=== PATIENT | female | born 1965 | race Caucasian/White ===

== ENCOUNTER 2019-01-06 12:55 | Emergency (ER) | payer OTHER ==
[~2019-01-06] VITALS: Ht 162.6 cm; Wt 90.7 kg
[2019-01-06 13:06] VITALS: Ht 162.6 cm; Wt 90.7 kg
[2019-01-06 13:50] LABS: BASOPHIL % 0.3 % (0-2); PLATELET COUNT 315 x10^3mcL (130-400)
[2019-01-06 13:54] LABS: RED CELL DISTRIBUTION WIDTH 14.6 % (11.5-14.5)
[2019-01-06 14:51] LABS: CARBON DIOXIDE 31.6 mmol/L (21-32); CHLORIDE SERUM 101 mmol/L (98-107); CREATININE SERUM 0.6 mg/dL (0.6-1.0); GFR1 > 60 mL/min; GLUCOSE SERUM 94 mg/dL (74-106); POTASSIUM SERUM 3.8 mmol/L (3.5-5.1); SODIUM SERUM 132 mmol/L (136-145)
[2019-01-06 14:54] LABS: ALBUMIN 3.7 g/dL (3.4-5.0); ALKALINE PHOSPHATASE 53 U/L (46-116); ALT/SGPT 32 U/L (14-59); AST/SGOT 14 U/L (15-37); BILIRUBIN TOTAL 0.33 mg/dL (0.20-1.00); TOTAL PROTEIN, SERUM 7.3 g/dL (6.4-8.2)
[2019-01-06 15:47] VITALS: BP 145/95
== END 2019-01-06 15:47 | disposition home or self-care (01) ==
LOC: ED 12:55
PROVIDERS: Emergency Medicine
DX: R51 Headache (principal); R07.89 Other chest pain; I10 Essential (primary) hypertension
CPT/HCPCS: J0360; J1885; Q0092